=== PATIENT | female | born 1975 | race Caucasian/White ===

== ENCOUNTER 2018-04-18 12:03 | Day surgery (SDC) | payer OTHER | END 2018-04-18 15:20 | disposition home or self-care (01) | LOC: AMB-ENDOS 12:03 | DX: K31.7 Polyp of stomach and duodenum (principal); K29.50 Unspecified chronic gastritis without bleeding; K31.89 Other diseases of stomach and duodenum; K44.9 Diaphragmatic hernia without obstruction or gangrene ==

== ENCOUNTER 2018-10-30 05:55 | Day surgery (SDC) | payer OTHER ==
[~2018-10-30 05:55] MED LIST: METAFOLBIC TAB1 EACH PO
[2018-10-30] MEDS ORDERED: PERCOCET 5-3251 EACH PO (15:44)
[2018-10-30] MEDS ORDERED: SURFAK240 M1 PO (15:45)
[2018-10-30] MEDS ORDERED: POLY119PG PO (15:45)
[2018-10-30] MEDS ORDERED: CARAFATE1 GM/10 ML PO (15:46)
== END 2018-10-30 19:15 | disposition home or self-care (01) ==
LOC: CIR.AMB 05:55
DX: K80.10 Calculus of gallbladder with chronic cholecystitis without obstruction (principal); K42.9 Umbilical hernia without obstruction or gangrene; K43.2 Incisional hernia without obstruction or gangrene